=== PATIENT | female | born 1950 | race Asian ===

== ENCOUNTER 2024-04-29 09:56 | Outpatient (CLI) | payer MEDICARE, SELFPAY ==
--- NOTE | 2024-04-29 10:15 | CRLHL7_ITS ---
For Patients: As a result of the Century Cures Act, medical imaging exams and procedure reports are released immediately into your electronic medical record. You may view this report before your referring provider. If you have questions, please contact your health care provider. Indication: Resistant hypertension Technique: Grayscale, color Doppler and power Doppler evaluation of the kidneys and renal arteries performed. Comparison: None Findings: Right kidney measures 8.4 cm in length with the renal cortex measuring 1 cm. Left kidney measures 10.4 cm in length with the cortex measuring 1.5 cm. No hydronephrosis or solid renal mass. No renal cyst. Aortic peak systolic velocity is 259 cm/second. Right renal artery peak systolic velocity measures up to 103 cm/second and on the left measures up to 147 cm/second. Right renal artery ratio is 0.4. Left renal artery ratio is 0.6. Resistive indices measure up to 0.9 bilaterally. Impression: No evidence of significant renal artery stenosis. Dictated by Deion Singh MD @ 04/30/2024 1:08:53 PM (Electronically Signed)
== END 2024-04-29 09:57 | disposition home or self-care (01) ==
LOC: US 10:01
PROVIDERS: PCP Family Medicine; Visit Provider Family Medicine
DX: I10 Essential (primary) hypertension (principal); I1A.0 Resistant hypertension
CPT/HCPCS: 76775; 93975